=== PATIENT | female | born 2000 | race Hispanic/Latino ===

== ENCOUNTER 2021-01-02 21:39 | Outpatient (CLI) | payer MEDICAID ==
[2021-01-02 22:01] VITALS: BP 117/70
[2021-01-02] MEDS ORDERED: LACTATED RINGERS 1,000 ML IV ONE (22:12)
[2021-01-02 22:33] LABS: Bilirubin,Urine NEG (Negative); Blood,Urine MOD (Negative); Color,Urine Yellow (Yellow); Mucus,Urine FEW /HPF
== END 2021-01-03 00:16 | disposition home or self-care (01) ==
LOC: TRG 21:39 → APU 21:45 → TRG 01-03 00:16
DX: O26.892 Other specified pregnancy related conditions, second trimester (principal); R10.9 Unspecified abdominal pain; Z3A.23 23 weeks gestation of pregnancy
CPT/HCPCS: 59025; 81001; 96360; J7120

== ENCOUNTER 2021-03-24 17:56 | Outpatient (CLI) | payer MEDICAID ==
[2021-03-24 20:17] VITALS: BP 114/69
[2021-03-24] MEDS ORDERED: LACTATED RINGERS 1,000 ML IV ONE (20:29)
[2021-03-24 21:16] LABS: Amphetamine Screen,Urine Negative; Benzodiazepines Screen,Urine Negative; Cannabinoid Screen,Urine Negative; Cocaine Screen,Urine Negative; Methadone Screen,Urine Negative; Opiate Screen,Urine Negative
[2021-03-24 21:19] LABS: Bilirubin,Urine NEG (Negative); Blood,Urine NEG (Negative); Color,Urine Straw (Yellow); Protein,Urine <15 mg/dL mg/dL (Negative); RBC,Urine < 1.0 /HPF (0.0-6.0); Urobilinogen,Urine < 2.0 mg/dL (<2.0); WBC,Urine < 1.0 /HPF (0.0-6.0)
== END 2021-03-24 22:00 | disposition home or self-care (01) ==
LOC: TRG 17:56 → APU 18:59 → TRG 22:00
PROVIDERS: ATTEND Obstetrics & Gynecology Gynecology
DX: Z34.93 Encounter for supervision of normal pregnancy, unspecified, third trimester (principal); Z3A.35 35 weeks gestation of pregnancy
CPT/HCPCS: 59025; 80307; 81001

== ENCOUNTER 2021-03-29 09:52 | Outpatient (CLI) | payer MEDICAID ==
[2021-03-29 12:03] VITALS: BP 125/85
[2021-03-29 13:09] LABS: Alanine Aminotransferase 18 units/L (7-56); Albumin 3.2 g/dL (3.9-5); BUN/Creatinine Ratio 13; Blood Urea Nitrogen 5 mg/dL (7-17); Calcium 8.8 mg/dL (8.4-10.2); Hemolysis Index 31
[2021-03-29 14:45] LABS: Hematocrit 40.9 % (30.3-42.9); Hemoglobin 13.2 gm/dl (10.1-14.3); Mean Corpuscular HGB Conc 32 % (30-34); Mean Corpuscular Volume 95 fl (79-97); Platelet Count 242 K/mm3 (140-440); Red Blood Count 4.32 M/mm3 (3.65-5.03); Red Cell Distribution Width 12.8 % (13.2-15.2)
--- NOTE | 2021-03-29 17:41 | Ultrasound Report ---
ULTRASOUND OBSTETRIC LIMITED ULTRASOUND BIOPHYSICAL PROFILE INDICATION / CLINICAL INFORMATION: WELL BEING. Clinical Gestational Age (GA) in weeks, days: 35, 5 TECHNIQUE: Transabdominal. COMPARISON: None available. FINDINGS: BREATHING MOVEMENT = 2 GROSS BODY MOVEMENT = 2 TONE = 2 QUALITATIVE AMNIOTIC FLUID VOLUME = 2 TOTAL BIOPHYSICAL SCORE = 8/8 HEART RATE (beats per minute): 159 AMNIOTIC FLUID INDEX (cm) = 11.5 (normal = 7-24 cm) PRESENTATION: Cephalic. ADDITIONAL FINDINGS: None. IMPRESSION: 1. Biophysical Score = 8/8 . 2. Viable intrauterine with KINJAL of 11.5 cm. Signer Name: Asa Wilhelm MD Signed: 03/29/2021 5:37 PM Workstation Name: [id number]
== END 2021-03-29 18:55 | disposition home or self-care (01) ==
LOC: TRG 09:52 → APU 09:53 → TRG 18:55
PROVIDERS: ATTEND Obstetrics & Gynecology
DX: O26.893 Other specified pregnancy related conditions, third trimester (principal); L29.9 Pruritus, unspecified; Z3A.35 35 weeks gestation of pregnancy
CPT/HCPCS: 36415; 59025; 76815; 76819; 80053; 82239; 85027

== ENCOUNTER 2021-04-19 16:43 | Outpatient (CLI) | payer MEDICAID ==
[2021-04-19 18:30] VITALS: BP 127/63
--- NOTE | 2021-04-19 23:47 | Ultrasound Report ---
ULTRASOUND OBSTETRIC INDICATION / CLINICAL INFORMATION: KINJAL/ WEIGHT. - Clinical Gestational Age (GA) in weeks, days: 38, 5 TECHNIQUE: Transabdominal. COMPARISON: 03/29/21 FINDINGS: Single intrauterine . Biparietal Diameter = 9.5 cm = 38, 5 weeks, days Head Circumference = 33.7 cm = 38, 4 weeks, days Abdominal Circumference = 31.2 cm = 35, 1 weeks, days Femur Length = 10.3 cm = 37, 1 weeks, days Average Ultrasound Age (AUA) = 37, 3 weeks, days Heart Rate: 157 beats per minute. Estimated Weight in grams (if calculated): 2929 g Estimated Weight Growth Percentile (if calculated): 15% Position: cephalic. Amniotic Fluid Volume: normal Amniotic Fluid Index (KINJAL) in cm (if calculated): 11.3. Maternal Adnexa: Not evaluated. IMPRESSION: 1. Single, living intrauterine with estimated sonographic age of 37, 3 weeks, days. 2. Normal amniotic fluid volume. Signer Name: Mitchell Alvares MD Signed: 04/19/2021 11:43 PM Workstation Name: [id number]
== END 2021-04-19 23:16 | disposition home or self-care (01) ==
LOC: TRG 16:43 → APU 16:45 → TRG 23:16
PROVIDERS: ATTEND Obstetrics & Gynecology
DX: Z34.93 Encounter for supervision of normal pregnancy, unspecified, third trimester (principal); Z3A.38 38 weeks gestation of pregnancy
CPT/HCPCS: 76816